=== PATIENT | female | born 1940 | race Caucasian/White ===

== ENCOUNTER 2017-06-17 10:52 | Inpatient (IN) | payer OTHER ==
[~2017-06-17] VITALS: Ht 167.6 cm; Wt 92.5 kg
[~2017-06-17 10:52] MED LIST: ALBUTEROL0.09 MG/A2 IH; ASPIR-LOW81 MG PO; CALTRATE 600 +1 TAB PO; CARVEDILOL12.5 MG PO; CENTRUM SPECIA1 EACH PO; CLARITIN10 MG; COZAAR25 M1 PO; DUOFER 28 MG TA28 MG PO; LASIX40 MG PO; LEVOFLOXACIN500 MG PO; LISINOPRIL5 MG PO; PEPCID20 MG PO; PLAVIX75 MG; POTASSIUM20 MEQ PO; SINGULAIR10 M1 PO; SYNTHROID,LEVO75 MCG PO; TRAMADOL HCL50 MG PO; VITAMIN D-32000 UNI1 PO; VOLTAREN11 TP; ZOCOR10 MG PO; ZOFRAN ODT4 MG SL
[2017-06-17 11:16] LABS: BASO # 0.1 10*3/uL (0.0-0.1); BASO % 0.7 % (0.0-1.0); EOS # 0.4 10*3/uL (0.0-0.4); EOS % 5.2 % (1.0-4.0); HEMATOCRIT 42.2 % (37.0-47.0); HEMOGLOBIN 13.9 g/dl (12.0-16.0); LYMPH # 1.9 10*3/uL (1.3-4.4); MEAN CELL VOLUME 88.5 fl (81.0-99.0); MEAN CORPUSCULAR HGB 29.1 pg (27.0-31.0); MEAN CORPUSCULAR HGB CONC 32.9 g/dl (33.0-37.0); MEAN PLATELET VOLUME 12.4 fl (9.6-12.3); MONO # 0.9 10*3/uL (0.1-1.0); MONO % 11.5 % (3.0-9.0); NEUT # 4.8 10*3/uL (2.3-7.9); NEUT % 59.4 % (47.0-73.0); PLATELET COUNT AUTOMATED 160 10*3/uL (130-400); RED BLOOD COUNT 4.77 10*6/uL (4.10-5.10); RED CELL DISTRI WIDTH 12.7 % (0-14.5); WHITE BLOOD COUNT 8.1 10*3/uL (4.8-10.8)
[2017-06-17 11:23] VITALS: BP 168/94
[2017-06-17 11:25] LABS: ACT PARTIAL THROMBO TIME 23.8 SECONDS (20.8-31.5); INTERNATIONAL NORM RATIO 1.1 (2.0-3.5)
[2017-06-17 11:28] LABS: ABG BASE EXCESS 0.7 mmol/L (-2.0-2.0); ABG O2 SATURATION 99.1 % (95-97); ARTERIAL BLOOD GAS PCO2 46.9 mmHg (35-45); ARTERIAL BLOOD GAS PH 7.365 (7.35-7.45)
[2017-06-17 11:33] LABS: ALBUMIN 3.7 gm/dl (3.1-4.5); ALKALINE PHOSPHATASE 65 U/L (45-117); BUN 18 mg/dl (7-24); CHLORIDE 100 mmol/L (98-107); SGOT/AST 35 IU/L (3-35); SGPT/ALT 31 U/L (12-78); SODIUM 135 mmol/L (136-145); TOTAL PROTEIN 7.6 gm/dL (6.4-8.2)
[2017-06-17 11:38] LABS: TROPONIN I < 0.015 ng/ml (<0.045)
[2017-06-17 12:00] VITALS: BP 133/59
[2017-06-17 12:37] LABS: BILIRUBIN NEGATIVE (NEGATIVE); BLOOD NEGATIVE (NEGATIVE); CLARITY CLEAR (CLEAR); COLOR YELLOW (YELLOW); GLUCOSE NEGATIVE (NEGATIVE); KETONE NEGATIVE (NEGATIVE); LEUKO ESTERASE NEGATIVE (NEGATIVE); NITRITE NEGATIVE (NEGATIVE); PH 5.5 (5.0-9.0); UROBILINOGEN 0.2 E.U./dl (0.2-1.0)
[2017-06-17 13:09] VITALS: BP 133/59
[2017-06-17 13:19] LABS: BACTERIA TRACE
[2017-06-17 16:00] VITALS: BP 128/71
[2017-06-17] MEDS ORDERED: RANEXA500 M1 PO (16:12)
[2017-06-17 20:33] VITALS: BP 129/68
[2017-06-18 00:14] VITALS: BP 114/58
[2017-06-18 06:00] LABS: ALBUMIN 3.6 gm/dl (3.1-4.5); BUN 18 mg/dl (7-24); CHLORIDE 97 mmol/L (98-107); CHOLESTEROL 143 mg/dL (<200); CREATININE 0.85 mg/dL (0.55-1.02); HDL CHOLESTEROL 54 mg/dl (40-60); LDL CHOLESTEROL 70 mg/dL (9-159); PHOSPHOROUS 2.1 mg/dL (2.5-4.9); POTASSIUM 3.8 mmol/L (3.5-5.1); SGOT/AST 31 IU/L (3-35); SGPT/ALT 33 U/L (12-78); SODIUM 135 mmol/L (136-145); TOTAL PROTEIN 7.3 gm/dL (6.4-8.2); TRIGLYCERIDES 95 mg/dl (<150); VLDL CHOLESTEROL 19 mg/dL (6-40)
[2017-06-18 06:06] LABS: ALKALINE PHOSPHATASE 58 U/L (45-117); FREE T4 1.57 ng/dl (0.76-1.46); THYROID STIM HORMONE (HS) 0.505 uIU/ml (0.358-4.75)
[2017-06-18 06:11] LABS: BASO % 0.2 % (0.0-1.0); HEMATOCRIT 38.6 % (37.0-47.0); HEMOGLOBIN 13.1 g/dl (12.0-16.0); LYMPH % 15.3 % (27.0-41.0); MEAN CELL VOLUME 86.9 fl (81.0-99.0); MEAN CORPUSCULAR HGB 29.5 pg (27.0-31.0); MEAN CORPUSCULAR HGB CONC 33.9 g/dl (33.0-37.0); MONO # 0.1 10*3/uL (0.1-1.0); MONO % 1.4 % (3.0-9.0); NEUT # 5.5 10*3/uL (2.3-7.9); NEUT % 82.6 % (47.0-73.0); PLATELET COUNT AUTOMATED 144 10*3/uL (130-400); RED BLOOD COUNT 4.44 10*6/uL (4.10-5.10); RED CELL DISTRI WIDTH 12.7 % (0-14.5); WHITE BLOOD COUNT 6.6 10*3/uL (4.8-10.8)
[2017-06-18 07:58] LABS: VITAMIN D, 25-HYDROXY 40.5 ng/mL (30-100)
[2017-06-18 08:00] VITALS: BP 136/78
[2017-06-18 12:00] VITALS: BP 122/58
[2017-06-18 16:00] VITALS: BP 113/55
[2017-06-18 20:00] VITALS: BP 127/69
[2017-06-19 00:24] VITALS: BP 135/70
[2017-06-19 02:10] LABS: ALBUMIN 3.4 gm/dl (3.1-4.5); ALKALINE PHOSPHATASE 60 U/L (45-117); BUN 19 mg/dl (7-24); CHLORIDE 96 mmol/L (98-107); POTASSIUM 3.7 mmol/L (3.5-5.1); SGOT/AST 64 IU/L (3-35); SGPT/ALT 60 U/L (12-78); SODIUM 135 mmol/L (136-145); TOTAL PROTEIN 7.1 gm/dL (6.4-8.2)
[2017-06-19 04:00] VITALS: BP 111/84
[2017-06-19 06:42] LABS: HEMOGLOBIN 12.8 g/dl (12.0-16.0); MEAN CELL VOLUME 86.2 fl (81.0-99.0); MEAN CORPUSCULAR HGB 29.8 pg (27.0-31.0); MEAN CORPUSCULAR HGB CONC 34.6 g/dl (33.0-37.0); MEAN PLATELET VOLUME 13.1 fl (9.6-12.3); PLATELET COUNT AUTOMATED 153 10*3/uL (130-400); RED BLOOD COUNT 4.29 10*6/uL (4.10-5.10); RED CELL DISTRI WIDTH 12.6 % (0-14.5); WHITE BLOOD COUNT 12.6 10*3/uL (4.8-10.8)
[2017-06-19 07:00] LABS: ALBUMIN 3.6 gm/dl (3.1-4.5); ALKALINE PHOSPHATASE 59 U/L (45-117); BUN 18 mg/dl (7-24); CHLORIDE 97 mmol/L (98-107); CREATININE 0.79 mg/dL (0.55-1.02); POTASSIUM 3.8 mmol/L (3.5-5.1); SGOT/AST 62 IU/L (3-35); SGPT/ALT 64 U/L (12-78); SODIUM 134 mmol/L (136-145); TOTAL PROTEIN 7.2 gm/dL (6.4-8.2)
[2017-06-19 07:56] LABS: ATYPICAL LYMPHS 1 % (0-0); PLATELET SUFFICIENCY NORMAL (NORMAL); TOTAL CELLS COUNTED 100 #CELLS
[2017-06-19 08:00] VITALS: BP 150/80
[2017-06-19 12:00] VITALS: BP 101/50
[2017-06-19 16:00] VITALS: BP 112/65
[2017-06-19 20:00] VITALS: BP 111/72
[2017-06-20 00:03] VITALS: BP 134/71
[2017-06-20 08:00] VITALS: BP 127/65; BP 131/99
[2017-06-20 12:00] VITALS: BP 102/60
[2017-06-20] MEDS ORDERED: DOXYCYCLINE100 M3 PO (14:07)
[2017-06-20] MEDS ORDERED: ALDACTONE25 MG PO (14:07)
[2017-06-20] MEDS ORDERED: TOPROL XL50 M1 PO (14:07)
[2017-06-20] MEDS ORDERED: LOSARTAN POTASS50 M1 PO (14:07)
== END 2017-06-20 15:34 | disposition home or self-care (01) | DRG 190 ==
LOC: ED 10:52 → EDHOLD 11:47 → 4E 11:47
PROVIDERS: Emergency Medicine; Internal Medicine; Internal Medicine Cardiovascular Disease; Registered Nurse
DX: J44.1 Chronic obstructive pulmonary disease with (acute) exacerbation (principal); I50.23 Acute on chronic systolic (congestive) heart failure; I47.2 Ventricular tachycardia; E87.2 Acidosis; R65.10 Systemic inflammatory response syndrome (SIRS) of non-infectious origin without acute organ dysfunction; I11.0 Hypertensive heart disease with heart failure; E83.41 Hypermagnesemia; E87.1 Hypo-osmolality and hyponatremia; J98.11 Atelectasis; R07.89 Other chest pain; I25.10 Atherosclerotic heart disease of native coronary artery without angina pectoris; R73.9 Hyperglycemia, unspecified; E78.00 Pure hypercholesterolemia, unspecified; D72.829 Elevated white blood cell count, unspecified; I25.5 Ischemic cardiomyopathy; J98.01 Acute bronchospasm; I45.81 Long QT syndrome; E03.9 Hypothyroidism, unspecified; K21.9 Gastro-esophageal reflux disease without esophagitis; E66.9 Obesity, unspecified; I25.2 Old myocardial infarction; Z90.710 Acquired absence of both cervix and uterus; Z68.33 Body mass index [BMI] 33.0-33.9, adult; Z95.5 Presence of coronary angioplasty implant and graft; Z95.810 Presence of automatic (implantable) cardiac defibrillator; Z95.1 Presence of aortocoronary bypass graft; Z90.49 Acquired absence of other specified parts of digestive tract; Z79.02 Long term (current) use of antithrombotics/antiplatelets; Z79.82 Long term (current) use of aspirin; Z79.899 Other long term (current) drug therapy; Z82.49 Family history of ischemic heart disease and other diseases of the circulatory system